=== PATIENT | female | born 1960 | race Caucasian/White ===

== ENCOUNTER → 2017-09-17 | Outpatient (CLI) | payer OTHER ==
[2017-09-17 12:17] LABS: BASO % 0.5 %; BASO ABS # 0.03 K/uL (0-0.2); EOS % 3.5 %; EOS ABS # 0.22 K/uL (0-0.5); HEMOGLOBIN 13.4 g/dL (12.0-16.0); IG# 0.01 K/uL (0.00-0.02); LYMPH % 27.3 %; LYMPH ABS # 1.73 K/uL (1.2-3.4); MEAN CELL VOLUME 92.6 fL (80-100); MEAN CORPUSCULAR HGB CONC 33.5 g/dl (32-36); MEAN PLATELET VOLUME 9.2 fL (7.4-10.4); MONO % 8.8 %; MONO ABS # 0.56 K/uL (0.11-0.59); NEUT % 59.7 %; NEUT ABS # 3.79 K/uL (1.4-6.5); PLATELET COUNT 396 K/uL (130-400); RED CELL DISTRIBUTION WIDTH CV 13.1 % (11.5-14.5); RED CELL DISTRIBUTION WIDTH SD 44.8 fL (36.4-46.3); WHITE BLOOD COUNT 6.34 K/uL (4.8-10.8)
[2017-09-17 13:36] LABS: ALBUMIN 3.8 gm/dl (3.4-5.0); ALT/SGPT 20 U/L (12-78); BLOOD UREA NITROGEN 6 mg/dl (7-18); CARBON DIOXIDE 27 mmol/L (21-32); CHOLESTEROL 236 mg/dl (0-200); CREATININE 0.68 mg/dl (0.60-1.20); GLUCOSE 90 mg/dl (70-99); POTASSIUM 3.9 mmol/L (3.5-5.1); SODIUM 139 mmol/L (136-145)
[2017-09-17 13:39] LABS: ALKALINE PHOSPHATASE 43 U/L (45-117); AST/SGOT 13 U/L (15-37); LDL CHOLESTEROL CALCULATED 147 mg/dl; TOTAL PROTEIN 7.2 gm/dl (6.4-8.2)
== END | disposition home or self-care (01) ==
LOC: C.LABMFLN 08:53
PROVIDERS: ATTEND Family Medicine
DX: E78.5 Hyperlipidemia, unspecified (principal); L30.9 Dermatitis, unspecified; R82.90 Unspecified abnormal findings in urine

== ENCOUNTER → 2017-10-12 | Outpatient (CLI) | payer OTHER ==
--- NOTE | 2017-10-15 15:18 | MAMMOGRAPHY REPORT ---
BILATERAL DIGITAL SCREENING MAMMOGRAM TOMOSYNTHESIS WITH CAD: 10/12/2017 CLINICAL HISTORY: Routine screening. Patient has no complaints. TECHNIQUE: Breast tomosynthesis in addition to standard 2D mammography was performed. Current study was also evaluated with a Computer Aided Detection (CAD) system. COMPARISON: Comparison is made to exams dated: 08/25/2013 mammogram, 03/29/2015 mammogram, and 012 mammogram. BREAST COMPOSITION: There are scattered areas of fibroglandular density in both breasts. FINDINGS: No suspicious masses, calcifications, or areas of architectural distortion are noted in ei ther breast. There has been no significant interval change compared to prior exams. There are stable post surgical changes from bilateral reduction mammoplasty. Scattered bilateral benign-appearing ca lcifications are not significantly changed. IMPRESSION: ACR BI-RADS CATEGORY 2: BENIGN There is no mammographic evidence of malignancy. A 1 year screening mammogram is recommended. The pa tient will receive written notification of the results. Approximately 10% of breast cancers are not detected with mammography. A negative mammographic report should not delay biopsy if a clinically suggestive mass is present. Priscilla Bhardwaj M.D. /:10/12/2017 14:24:28 Stencil Cutter Machine: Ailin PETERSON)([place]), [facility] letter sent: Normal 1/2 BI-RADS Code: ACR BI-RADS Category 2: Benign
== END | disposition home or self-care (01) ==
LOC: C.MAMM 13:54
PROVIDERS: ATTEND Family Medicine
DX: Z12.31 Encounter for screening mammogram for malignant neoplasm of breast (principal)

== ENCOUNTER 2020-10-11 12:32 | Observation (INO) ==
--- NOTE | 2020-10-11 14:26 | Emergency Department Note ---
Impression & Plan Chest pain ED Provider Note NAME: ELLIOTT RODRIGUEZ AGE: 60 SEX: F : 1960 ARRIVES VIA: Walk-In INFORMANT: Patient, ED PROVIDER(S): Edwin Clark MD Chief Complaint: Chest pain HPI: Patient does present with concern for chest pain that has been ongoing x2 weeks. Patient states that initially started approximate 2 Saturdays ago where she had a sharp twinge in the left chest. Subsequently the patient has had midsternal chest pain that is nonradiating but she states is exertional and is gotten progressively worse more constant. The patient states that it was especially worse today while moving a heavy load on a moving pallet. The patient denies any nausea or vomiting. The patient denies diaphoresis. Patient denies any lower extremity edema. The patient was recently started on lisinopril for hypertension on Sunday. The patient does have family history of her father having stents placed when he was in his 60s. Patient has taken occasional Tylenol which she states initially might have improved her discomfort but now it no longer helps. Patient denies any recent surgeries or procedures. Patient denies any recent prolonged car or plane travel. Patient denies any lower extremity edema. ROS: See HPI for pertinent positives and negatives. A total of 10 systems were reviewed and otherwise negative. Past medical history: See below Surgical history: See below Social history: See below Physical Exam: GENERAL: Wearing a mask and glasses. NAD, non-toxic. EYE EXAM: Normal conjunctiva. PERRL, no anisocoria and EOM's grossly intact w/o pain. NECK: Supple, no nuchal rigidity, no adenopathy, non-tender. No signs of meningismus. LUNGS: Clear to auscultation. Normal chest wall mechanics. HEART: NSR, no MRG. ABDOMEN: Abdomen soft, non-tender, normo-active bowel sounds, no masses, no rebound or guarding. BACK: No CVA TTP. SKIN: No rashes and no bruising. UPPER EXTREMITIES: Upper extremities are grossly normal. LOWER EXTREMITIES: Grossly normal, no edema. NEURO EXAM: A&O x3, cranial nerves II-XII grossly intact, normal speech, moves all 4 extremities on command w/o issue. Differential diagnoses: Cardiac ischemia, aortic dissection, pulmonary embolism, pneumothorax, pneumonia, pericarditis, myocarditis, esophageal rupture, GERD, cholecystitis, pancreatitis, musculoskeletal, as well as other pathologies. Course: Patient was seen and evaluated the bedside. Full history physical exam was performed. EKG: Indication: Chest pain Normal sinus rhythm, rate 89, normal UT, wide QRS, left bundle branch block pattern. No obvious carbose criteria. T wave inversion high lateral leads. No significant change from comparison EKG March 19, 2020. Imaging Studies: Radiology results as stated below per my review in the radiologist's interpretation: CT SCAN OF THE ABDOMEN AND PELVIS WITH IV CONTRAST CLINICAL HISTORY: Pancytopenia. Left-sided abdominal pain. COMPARISON STUDY: Abdominal CT dated 04/29/2020. TECHNIQUE: Following the IV administration of 119 cc of Optiray 320, CT scan of the abdomen and pelvis is performed from the lung bases to the proximal femora. Images are reviewed in the axial, sagittal, and coronal planes. IV contrast was administered without complication. A dose lowering technique was utilized adhering to the principles of ALARA. The examination is degraded by motion artifact, as well as by streak artifact from the arms which could not be related above the abdomen. CT DOSE: 672.04 mGy.cm FINDINGS: Lung bases: The heart is mildly enlarged and without pericardial effusion. There are coronary artery calcifications. The lung bases are clear noting bibasilar scarring/atelectasis. There is a tiny hiatal hernia. Liver: The contrast-enhanced liver is normal in size, contour, and attenuation. There is no intrahepatic biliary ductal dilatation. The hepatic veins and portal veins are patent. Gallbladder: Unremarkable. Spleen: Normal in size and attenuation, measuring 12.0 cm in length. Pancreas: Unremarkable. Adrenal glands: Unremarkable. Kidneys: The contrast enhanced kidneys demonstrate cortical atrophy and are without hydronephrosis. The kidneys enhance symmetrically. Abdominal vasculature: The abdominal aorta is normal in course and caliber noting moderate to advanced atherosclerotic calcification. Bowel: There is mild colonic fecal retention. No bowel obstruction is seen. There is moderate diverticulosis of the sigmoid colon without CT evidence of acute diverticulitis. The appendix is not visualized. Peritoneum: There is no intraperitoneal free air or abdominal ascites. Lymphadenopathy: There is retroperitoneal lymphadenopathy. A left periaortic node on image #161 measures 3.7 x 2.4 cm. There are mildly enlarged left inguinal nodes. The largest is seen on image #369 and measures 1.9 x 1.3 cm. Pelvic viscera: The bladder, uterus, and adnexa are normal as visualized. Skeletal structures: The skeletal structures are osteopenic. There is moderate to advanced lumbosacral spondylosis and mild scoliosis. No lytic or blastic lesions are seen. IMPRESSION: 1. Streak and motion compromised examination. 2. There are no acute infectious or inflammatory findings seen in the abdomen or pelvis. 3. Retroperitoneal and left inguinal lymphadenopathy is nonspecific, and has decreased from 04/29/2020. The appearance favors a lymphoproliferative disorder and correlation with the patient's oncological history will be required. 4. Additional findings as above. ACT 112: Negative or not required by law. Electronically signed by: Elmer Ford M.D. 10/11/2020 4:14 PM Dictated: 10/11/20 1602 Transcribed: 10/11/20 1608 Cardiac monitoring: An order was placed for continuous cardiac monitoring. The monitor shows a rate of 86 with sinus rhythm. MDM: Patient did present with concern for chest pain. The patient did have letter completed along with an EKG troponin chest x-ray. Chest ray unremarkable. Patient does have left bundle branch block no significant change from prior. The patient's blood work fairly unremarkable. The patient would be moderate risk and given the patient's history of left bundle with exertional chest pain believe the patient would benefit from inpatient treatment. The patient was ordered aspirin. Upon reassessment the patient's pain dissipated. I did speak the on-call hospitalist and the patient was admitted by Dr. Wiggins of the [facility] physician group medicine service. Past Med/Surg History Medical History (Updated 10/11/20 @ 18:02 by Berry Boyce MD) Anxiety Eczema Hyperlipidemia Recurrent cold sores Situational insomnia Thumb tendonitis Vitamin D deficiency Weight gain Surgical History S/P cholecystectomy S/P wrist surgery Family History Other Diabetes Hypertension Lung disease Social History Smoking Status: Never smoker Age Started Using Tobacco: 16; Age Quit Using Tobacco: 19; Second Hand Exposure: No; Hx Alcohol Use: No Hx Substance Use: No marital status: Single Current Living Situation: Alone current occupational status: employed current occupation: [employer] Feels Safe at Home: Yes Childhood Exposure to Second-Hand Smoke: No caffeine: Yes Dental Care, Regularly: Yes Physical Activity Frequency: Does not Exercise Seatbelt Use: always Allergies Allergies Allergy/AdvReac Type Severity Reaction Status Date / Time cefaclor [From Ceclor] AdvReac Verified 10/11/20 16:29 Home Meds Home Medications Medication Instructions Recorded Confirmed cetirizine 10 mg tablet 10 mg PO DAILY PRN tab 02/23/20 10/11/20 cholecalciferol (vitamin D3) 125 mcg PO DAILY 10/11/20 10/11/20 [Vitamin D3] Previous Rx's Medication Instructions Recorded omeprazole 40 mg capsule,delayed 40 mg PO DAILY PRN #90 cap 11/18/19 release fenofibrate nanocrystallized 145 145 mg PO DAILY #90 tab 06/28/20 mg tablet trazodone 50 mg tablet 100 mg PO HS PRN #180 tab 06/28/20 zolpidem 10 mg tablet 10 mg PO HS #30 tab 08/11/20 lisinopril 5 mg tablet 5 mg PO DAILY #30 tab 10/08/20 Results & Data (ED) Vital Signs Vital Signs - 24 hr 10/11/20 12:45 10/11/20 15:41 10/11/20 18:00 Temperature 36 C L Temperature Source Temporal Artery Scan Pulse Rate 90 Pulse Rate [Left Finger] 92 H 86 Pulse Rhythm [Left Finger] Regular Pulse Strength [Left Finger] Normal Respiratory Rate 20 16 16 Respiratory Effort / Characteristics Non-Labored Spontaneous Respiratory Depth Normal Normal Respiratory Pattern Regular Blood Pressure 159/89 H Blood Pressure [Left Arm] 204/107 H 154/85 H Blood Pressure Mean 112 Blood Pressure Mean [Left Arm] 139 108 Blood Pressure Position [Left Arm] Lying Pulse Oximetry 99 99 97 Oxygen Delivery Method Room Air Room Air Room Air Sepsis Recent Fever Within 48 Hours No Sepsis New/Unexplained Change in Mental Status N/A Sepsis Action Taken by Nursing No Action Required Home Medications Current Medication List: was personally reviewed by me Laboratory Data Attestation: I reviewed the patient's lab results. Result diagrams: 10/11/20 15:44 10/11/20 15:44 Lab Results 10/11/20 10/11/20 Range/Units 15:44 15:44 WBC 7.61 (4.8-10.8) K/uL RBC 4.63 (4.2-5.4) M/uL Hgb 14.0 (12.0-16.0) g/dL Hct 42.0 (37-47) % MCV 90.7 (80-100) fL MCH 30.2 (25-34) pg MCHC 33.3 (32-36) g/dL RDW Std Deviation 44.4 (36.4-46.3) fL RDW Coeff of Teri 13.4 (11.5-14.5) % Plt Count 436 H (130-400) K/uL MPV 9.1 (7.4-10.4) fL Immature Gran % (Auto) 0.1 % Neut % (Auto) 56.7 % Lymph % (Auto) 32.6 % [place] % (Auto) 8.9 % Eos % (Auto) 1.2 % Baso % (Auto) 0.5 % Neut # (Auto) 4.31 (1.4-6.5) K/uL Lymph # (Auto) 2.48 (1.2-3.4) K/uL [place] # (Auto) 0.68 H (0.11-0.59) K/uL Eos # (Auto) 0.09 (0-0.5) K/uL Baso # (Auto) 0.04 (0-0.2) K/uL Immature Gran # (Auto) 0.01 (0.00-0.02) K/uL Sodium 138 (136-145) mmol/L Potassium 4.0 (3.5-5.1) mmol/L Chloride 105 (98-107) mmol/L Carbon Dioxide 25 (21-32) mmol/L Anion Gap 7.0 (3-11) BUN 14 (7-18) mg/dl Creatinine 0.88 (0.6-1.2) mg/dl Est Cr Clr Drug Dosing 70.7 ml/min Est GFR ( Amer) 82.2 Est GFR (Non-Af Amer) 70.9 BUN/Creatinine Ratio 16.5 (10-20) Glucose 102 H (70-99) mg/dl Calcium 9.7 (8.5-10.1) mg/dl Total Bilirubin 0.5 (0.2-1) mg/dl AST 23 (15-37) U/L ALT 42 (12-78) U/L Alkaline Phosphatase 41 L (45-117) U/L Troponin I < 0.015 (0-0.045) ng/ml Total Protein 8.0 (6.4-8.2) gm/dl Albumin 4.3 (3.4-5.0) gm/dl Globulin 3.7 (2.5-4.0) gm/dl Albumin/Globulin Ratio 1.2 (0.9-2) Lipase 136 (73-393) U/L Specimen Hemolysis Discharge Plan Visit Data Chief Complaint: Chest Pain Stated Complaint: CHEST PAIN ED Provider: Edwin Clark Discharge Problem: Chest pain Forms Stand Alone Forms: [employer] [facility] [place] [employer] Prescriptions Prescriptions: No Action omeprazole 40 mg capsule,delayed release(DR/EC) 40 mg PO DAILY PRN (Reason: heartburn) Qty: 90 RF: 1 fenofibrate nanocrystallized 145 mg tablet 145 mg PO DAILY Qty: 90 RF: 3 trazodone 50 mg tablet 100 mg PO HS PRN (Reason: insomnia) Qty: 180 RF: 0 zolpidem [Ambien] 10 mg tablet 10 mg PO HS Qty: 30 RF: 0 lisinopril 5 mg tablet 5 mg PO DAILY Qty: 30 RF: 2 cetirizine 10 mg tablet 10 mg PO DAILY PRN (Reason: Allergy Symptoms) RF: 0 cholecalciferol (vitamin D3) [Vitamin D3] 125 mcg (5,000 unit) Tablet 125 mcg PO DAILY RF: 0
--- NOTE | 2020-10-11 14:58 | XRay Report ---
XR chest 1V portable CLINICAL HISTORY: Atypical chest pain COMPARISON STUDY: No previous studies for comparison. FINDINGS: The heart is borderline enlarged. There is no failure. There is no focal pulmonary consolid ation. There are no pleural effusions.[ IMPRESSION: No active disease in the chest. ACT 112: Negative or not required by law. Electronically signed by: Zoran Nuñez M.D. 10/11/2020 2:57 PM
[2020-10-11 15:57] LABS: Basophils # (auto) 0.04 K/uL (0-0.2); Basophils % (auto) 0.5 %; Eosinophils # (auto) 0.09 K/uL (0-0.5); Eosinophils % (auto) 1.2 %; Immature Granulocytes # (auto) 0.01 K/uL (0.00-0.02); Immature Granulocytes % (auto) 0.1 %; Lymphocytes # (auto) 2.48 K/uL (1.2-3.4); Lymphocytes % (auto) 32.6 %; Mean Corpuscular Hemoglobin 30.2 pg (25-34); Mean Corpuscular Hgb Conc 33.3 g/dL (32-36); Mean Corpuscular Volume 90.7 fL (80-100); Mean Platelet Volume 9.1 fL (7.4-10.4); Monocytes # (auto) 0.68 K/uL (0.11-0.59); Monocytes % (auto) 8.9 %; Neutrophils # (auto) 4.31 K/uL (1.4-6.5); Neutrophils % (auto) 56.7 %; Platelet Count 436 K/uL (130-400); RDW Coefficient of Variation 13.4 % (11.5-14.5); RDW Standard Deviation 44.4 fL (36.4-46.3); Red Blood Count 4.63 M/uL (4.2-5.4); White Blood Count 7.61 K/uL (4.8-10.8)
--- NOTE | 2020-10-11 16:07 | Electrocardiogram Report ---
Test Reason : Blood Pressure : / mmHG Vent. Rate : 089 BPM Atrial Rate : 089 BPM P-R Int : 172 ms QRS Dur : 126 ms QT Int : 408 ms P-R-T Axes : 056 -09 123 degrees QTc Int : 496 ms Normal sinus rhythm Possible Left atrial enlargement Left bundle branch block Abnormal ECG When compared with ECG of 19-MAR-2020 08:16, No significant change was found Confirmed by Delon Lund ([id number]) on 10/11/2020 4:07:10 PM Referred By: Ayaan Ochoa Confirmed By:Delon Lund
[2020-10-11 16:16] LABS: Alanine Aminotransferase 42 U/L (12-78); Albumin Level 4.3 gm/dl (3.4-5.0); Aspartate Aminotransferase 23 U/L (15-37); BUN Creatinine Ratio 16.5 (10-20); Blood Urea Nitrogen 14 mg/dl (7-18); Calcium 9.7 mg/dl (8.5-10.1); Carbon Dioxide 25 mmol/L (21-32); Chloride 105 mmol/L (98-107); Creatinine Clr Calc Pharmacy 70.7 ml/min; Est GFR (African American) 82.2; Est GFR (Non-African American) 70.9; Glucose 102 mg/dl (70-99); Lipase 136 U/L (73-393); Sodium 138 mmol/L (136-145)
[2020-10-11 16:20] LABS: Albumin Globulin Ratio 1.2 (0.9-2); Alkaline Phosphatase 41 U/L (45-117); Bilirubin,Total 0.5 mg/dl (0.2-1); Globulin 3.7 gm/dl (2.5-4.0); Troponin I < 0.015 ng/ml (0-0.045)
[2020-10-11] MEDS ORDERED: NITROGLYCERIN SL 0.4 MG/TAB TAB SL STA (16:41)
[2020-10-11] MEDS ORDERED: ASPIRIN CHEW 324 MG PO STA (16:41)
[2020-10-11] MEDS ORDERED: ACETAMINOPHEN 325 MG TAB PO STA (16:41)
--- NOTE | 2020-10-11 17:21 | History & Physical Report ---
Date of Service October 11, 2020 Assessment & Plan (1) Chest pain: Louise is a 60-year-old female with a past medical history of chronic left bundle branch block preceding ischemic disease, hyperlipidemia, insomnia, GERD, and hypertension who presents for evaluation of 1 month of chest pain wo rsened the last 2 weeks. Chest Pain suspect stable angina - Central without radiation, exertional in nature - EKG with chronic LBBB, no acute ST/T wave changes - Pt had cath & nuclear stress in the 90's due to the LBBB, both were normal at the time. no testing since. Father with stends in 60s, non-smoker. Pt is a non- smoker. - HEART score 4-5 pts (moderate), including chronic LBBB. - Initial trop negative - Pt received full dose asa, nitro on admission, pain currently 0/10 - Admit on observation - Trend troponin x3 total - Nitro 0.4mg SL PRN - TTE pending - Lipids pending - Admission glucose elevated at 102, A1C pending - Metoprolol T 25mg BID as below (2) Hyperlipidemia: - Continue fenofibrate 145mg daily - Recommend patient begin Atorvastatin 40mg. Pt has declined this in the past, her father also refused statins and had a friend who went into fulminant liver failure after starting a statin. Discussed the relative risk of severe reactions vs benefits for CAD/Stroke reduction. 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 (6) DVT prophylaxis: - Heparin: Weight based heparin q8H - Diet: Regular - CODE STATUS: Full CODE - Dispo: PCU History of Present Illness Primary Care Provider: Ayaan Ochoa DO Louise reports for the last three months she has had a daily headache. on she checked her blood pressure and it was elevated to 164/80s. The next day she still felt poorly and emailed her physician who prescribed 5mg of lisinopril. She has also had intermittent chest pain for two weeks. Normally she feels uneasy, tight chest pain in the middle of her chest. On Sunday she was sitting down and she felt like her heart had 'a quick piercing jolt' which scared her. 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 She notes she has had an EKG 'abnormality, left bundle branch block for as far back as way back when.' She first began having chest pain rarely in the preceding few months/years but 'wrote it off as indigestion.' Two weeks ago she noticed more frequent chest pain which did not improve with indigestion medications (omeprazole which she uses PRN). Two weeks ago she noticed the pain just started to 'hang on for a little longer' and started to come up with exercise/exertion. She has not had s hortness of breath with the episodes, but does report 'when I have it I need to take deeper breaths.' She notices that exertion has been bringing out the pain in the last two weeks. She denies diaphoresis, but feels warm with cold hands during the episodes. 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 She has had some chest pain without extertion since ~1 mo ago, but feels this is more rare (every few days), and are sudden sharp pains that resolve quickly. Pain in her chest is substernal, in the center of her chest. 0/10 now, but 12/10 at its worst, normally improves with rest after ~10-15 minutes. Does not travel, no shoulder or jaw pain. She has chronic daily headaches which last part of to the whole day for 3-4 months. No vision change. She reports she had COVID in june and still has not reclaimed her sense of smell. Some taste has returned. No hx of bloot clots, DVT, or strokes. Reports she is less active since bilateral knee surgery and weight gain. FHx: Mother T2DM, DVT post-surgically. Father had at least 2 stents in his 60s and had T2DM with no tobacco use. Medical Hx: HLD on fenofrate. Never wanted to be on a statin because her father and best friend had liver reactions. SHX: Bilateral knee surgery. Social: Lives with sister and . Azul Rodriguez is hister sister and would be surrogate decision making. Tobacco: None EtoH: None Recreational: None, no medical marijuana Allergies: HIVES to to ceclor CODE STATUS: Full Code Allergies Allergy/AdvReac Type Severity Reaction Status Date / Time cefaclor [From Ceclor] AdvReac Verified 10/11/20 16:29 Home Medications Medication Instructions Recorded Confirmed Type omeprazole 40 mg capsule,delayed 40 mg PO DAILY PRN #90 cap 11/18/19 10/11/20 Rx release cetirizine 10 mg tablet 10 mg PO DAILY PRN tab 02/23/20 10/11/20 History fenofibrate nanocrystallized 145 145 mg PO DAILY #90 tab 06/28/20 10/11/20 Rx mg tablet trazodone 50 mg tablet 100 mg PO HS PRN #180 tab 06/28/20 10/11/20 Rx zolpidem 10 mg tablet 10 mg PO HS #30 tab 08/11/20 10/11/20 Rx lisinopril 5 mg tablet 5 mg PO DAILY #30 tab 10/08/20 10/11/20 Rx cholecalciferol (vitamin D3) 125 mcg PO DAILY 10/11/20 10/11/20 History [Vitamin D3] Past Med/Surg History Medical History (Updated 10/11/20 @ 22:25 by Marline Wiggins MD) Anxiety Eczema Hyperlipidemia Hypertension Insomnia Recurrent cold sores Situational insomnia Thrombocytosis Thumb tendonitis Vitamin D deficiency Weight gain Surgical History S/P cholecystectomy S/P wrist surgery Family History (Updated 10/11/20 @ 22:26 by Marline Wiggins MD) Father Coronary heart disease Diabetes Mother Deep vein thrombosis Other Hypertension Lung disease Social History Smoking Status: Never smoker Age Started Using Tobacco: 16; Age Quit Using Tobacco: 19; Second Hand Exposure: No; Hx Alcohol Use: No Hx Substance Use: No Preferred Language: Occitan Communication Ability: Effective 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 Feels Safe at Home: Yes Safety Concerns: Feels Safe At This Time Childhood Exposure to Second-Hand Smoke: No caffeine: Yes Dental Care, Regularly: Yes Physical Activity Frequency: Does not Exercise Seatbelt Use: always Review of Systems Review of Systems: Constitutional: Denies fever, chills, malaise. Endorses slow weight gain since being more sedentary after bilateral knee surgery. Eyes: Denies double vision, vision change, eye pain ENT: Congestion, ear pain, sore throat Cardiovascular: See HPI. Denies extremity swelling Respiratory: See HPI, Gastrointestinal: Denies abdominal pain, nausea, vomiting, constipation, diarrhea. Endorses intermittent indigestion. Genitourinary: Denies Urinary symptoms Musculoskeletal: Denies acute weakness, muscle aches/pain, joint aches/pain Integumentary:Denies rash, lesions, bruising Neurological: Endorses headache as noted in HPI. Denies numbness, tingling, focal weakness Physical Exam Physical Exam: General: A&Ox3. NAD. Cooperative. HEENT: Atraumatic, normocephalic. Pulm: CTAB A&P. -wheezes, -rales, -rhonchi. Symmetrical chest rise. No increase work of breathing. No respiratory distress. Cardiac: RRR, -mrg. Radial pulses intact and symmetrical. No JVD. Abdominal: Nontender, nondistended, soft. BS present. 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 Bilateral flexor planter response, no Collazo's, no clonus SENSORY: Normal to touch in upper and lower extremities without deficit or asymmetry Results & Data Results & Data ([facility]) Vital Signs (Past 12 Hours) Vital Signs Temp Pulse Pulse Resp BP BP Pulse Ox 10/11/20 15:41 92 H 16 204/107 H 99 10/11/20 12:45 36 C L 90 20 159/89 H 99 Laboratory Results 10/11/20 10/11/20 10/11/20 Range/Units 20:31 20:31 20:31 WBC (4.8-10.8) K/uL RBC (4.2-5.4) M/uL Hgb (12.0-16.0) g/dL Hct (37-47) % MCV (80-100) fL MCH (25-34) pg MCHC (32-36) g/dL RDW Std Deviation (36.4-46.3) fL RDW Coeff of Teri (11.5-14.5) % Plt Count (130-400) K/uL MPV (7.4-10.4) fL Immature Gran % (Auto) % Neut % (Auto) % Lymph % (Auto) % Crockett % (Auto) % Eos % (Auto) % Baso % (Auto) % Neut # (Auto) (1.4-6.5) K/uL Lymph # (Auto) (1.2-3.4) K/uL Crockett # (Auto) (0.11-0.59) K/uL Eos # (Auto) (0-0.5) K/uL Baso # (Auto) (0-0.2) K/uL Immature Gran # (Auto) (0.00-0.02) K/uL Sodium (136-145) mmol/L Potassium (3.5-5.1) mmol/L Chloride (98-107) mmol/L Carbon Dioxide (21-32) mmol/L Anion Gap (3-11) BUN (7-18) mg/dl Creatinine (0.6-1.2) mg/dl Est Cr Clr Drug Dosing ml/min Est GFR ( Amer) Est GFR (Non-Af Amer) BUN/Creatinine Ratio (10-20) Glucose (70-99) mg/dl Estimat Average Glucose Pending Hemoglobin A1c Pending Calcium (8.5-10.1) mg/dl Total Bilirubin (0.2-1) mg/dl AST (15-37) U/L ALT (12-78) U/L Alkaline Phosphatase (45-117) U/L Troponin I < 0.015 (0-0.045) ng/ml Total Protein (6.4-8.2) gm/dl Albumin (3.4-5.0) gm/dl Globulin (2.5-4.0) gm/dl Albumin/Globulin Ratio (0.9-2) Triglycerides 122 (0-150) mg/dl Cholesterol 236 H (0-200) mg/dl LDL Cholesterol, Calc 142 mg/dl VLDL Cholesterol, Calc 24 mg/dl HDL Cholesterol 70 mg/dl Cholesterol/HDL Ratio 3 Lipase (73-393) U/L Specimen Hemolysis COVID-19 Eval Order SARS-CoV-2, RNA, NAAT (NEGATIVE) 10/11/20 10/11/20 10/11/20 Range/Units 18:50 18:50 15:44 WBC (4.8-10.8) K/uL RBC (4.2-5.4) M/uL Hgb (12.0-16.0) g/dL Hct (37-47) % MCV (80-100) fL MCH (25-34) pg MCHC (32-36) g/dL RDW Std Deviation (36.4-46.3) fL RDW Coeff of Teri (11.5-14.5) % Plt Count (130-400) K/uL MPV (7.4-10.4) fL Immature Gran % (Auto) % Neut % (Auto) % Lymph % (Auto) % Crockett % (Auto) % Eos % (Auto) % Baso % (Auto) % Neut # (Auto) (1.4-6.5) K/uL Lymph # (Auto) (1.2-3.4) K/uL Crockett # (Auto) (0.11-0.59) K/uL Eos # (Auto) (0-0.5) K/uL Baso # (Auto) (0-0.2) K/uL Immature Gran # (Auto) (0.00-0.02) K/uL Sodium 138 (136-145) mmol/L Potassium 4.0 (3.5-5.1) mmol/L Chloride 105 (98-107) mmol/L Carbon Dioxide 25 (21-32) mmol/L Anion Gap 7.0 (3-11) BUN 14 (7-18) mg/dl Creatinine 0.88 (0.6-1.2) mg/dl Est Cr Clr Drug Dosing 70.7 ml/min Est GFR ( Amer) 82.2 Est GFR (Non-Af Amer) 70.9 BUN/Creatinine Ratio 16.5 (10-20) Glucose 102 H (70-99) mg/dl Estimat Average Glucose Hemoglobin A1c Calcium 9.7 (8.5-10.1) mg/dl Total Bilirubin 0.5 (0.2-1) mg/dl AST 23 (15-37) U/L ALT 42 (12-78) U/L Alkaline Phosphatase 41 L (45-117) U/L Troponin I < 0.015 (0-0.045) ng/ml Total Protein 8.0 (6.4-8.2) gm/dl Albumin 4.3 (3.4-5.0) gm/dl Globulin 3.7 (2.5-4.0) gm/dl Albumin/Globulin Ratio 1.2 (0.9-2) Triglycerides (0-150) mg/dl Cholesterol (0-200) mg/dl LDL Cholesterol, Calc mg/dl VLDL Cholesterol, Calc mg/dl HDL Cholesterol mg/dl Cholesterol/HDL Ratio Lipase 136 (73-393) U/L Specimen Hemolysis COVID-19 Eval Order Covid19 IDNow atMAZC SARS-CoV-2, RNA, NAAT NEGATIVE (NEGATIVE) 10/11/20 Range/Units 15:44 WBC 7.61 (4.8-10.8) K/uL RBC 4.63 (4.2-5.4) M/uL Hgb 14.0 (12.0-16.0) g/dL Hct 42.0 (37-47) % MCV 90.7 (80-100) fL MCH 30.2 (25-34) pg MCHC 33.3 (32-36) g/dL RDW Std Deviation 44.4 (36.4-46.3) fL RDW Coeff of Trei 13.4 (11.5-14.5) % Plt Count 436 H (130-400) K/uL MPV 9.1 (7.4-10.4) fL Immature Gran % (Auto) 0.1 % Neut % (Auto) 56.7 % Lymph % (Auto) 32.6 % Crockett % (Auto) 8.9 % Eos % (Auto) 1.2 % Baso % (Auto) 0.5 % Neut # (Auto) 4.31 (1.4-6.5) K/uL Lymph # (Auto) 2.48 (1.2-3.4) K/uL Crockett # (Auto) 0.68 H (0.11-0.59) K/uL Eos # (Auto) 0.09 (0-0.5) K/uL Baso # (Auto) 0.04 (0-0.2) K/uL Immature Gran # (Auto) 0.01 (0.00-0.02) K/uL Sodium (136-145) mmol/L Potassium (3.5-5.1) mmol/L Chloride (98-107) mmol/L Carbon Dioxide (21-32) mmol/L Anion Gap (3-11) BUN (7-18) mg/dl Creatinine (0.6-1.2) mg/dl Est Cr Clr Drug Dosing ml/min Est GFR ( Amer) Est GFR (Non-Af Amer) BUN/Creatinine Ratio (10-20) Glucose (70-99) mg/dl Estimat Average Glucose Hemoglobin A1c Calcium (8.5-10.1) mg/dl Total Bilirubin (0.2-1) mg/dl AST (15-37) U/L ALT (12-78) U/L Alkaline Phosphatase (45-117) U/L Troponin I (0-0.045) ng/ml Total Protein (6.4-8.2) gm/dl Albumin (3.4-5.0) gm/dl Globulin (2.5-4.0) gm/dl Albumin/Globulin Ratio (0.9-2) Triglycerides (0-150) mg/dl Cholesterol (0-200) mg/dl LDL Cholesterol, Calc mg/dl VLDL Cholesterol, Calc mg/dl HDL Cholesterol mg/dl Cholesterol/HDL Ratio Lipase (73-393) U/L Specimen Hemolysis COVID-19 Eval Order SARS-CoV-2, RNA, NAAT (NEGATIVE) Diagnostic Findings XR chest 1V portable CLINICAL HISTORY: Atypical chest pain COMPARISON STUDY: No previous studies for comparison. FINDINGS: The heart is borderline enlarged. There is no failure. There is no focal pulmonary consolidation. There are no pleural effusions.[ IMPRESSION: No active disease in the chest. Supervising Physician Co-Signing Physician Notes I personally examined the patient and verified all nguyen points of history and exam, discussed case, and agree with decision making with Dr. Boyce with the following additions/exceptions: This patient is a 60-year-old female with a history of hyperlipidemia, obesity, and hypertension, who presents to the ER with substernal chest pain that is nonradiating, that is brought on with exertion and relieved with rest, not associated with shortness of breath or nausea. Chest pain has been going on for 1 to 2 weeks. It was not relieved with Tums or her usual Prilosec. She is al so noted headaches ongoing for months but worse in the last couple of weeks and started checking her blood pressure and noticing that the headaches come on when her blood pressures greater than 150 systolic. Prior to 2 weeks ago, she reports she could easily walk a mile or go up and down a flight of stairs without any chest pains. But now, with even minimal exertion, she has onset of chest pain. When I saw her, she had just sat herself up in bed and reported the chest pain had returned. She was given nitroglycerin and had improvement. Her blood pressures remained quite elevated in the ER. History and ROS reviewed as above Vitals reviewed Gen: AAOx3, NAD HEENT: Anicteric sclerae, EOMI CV: RRR no mgr nl S1S2 Pulm: CTAB no wcr Abd: +BS soft NT ND no masses or hernias Ext: No edema, 2+ DP pulses Skin: No rashes, warm/dry Neuro: Full strength throughout Laboratory values reviewed ECG on 10/11/2020 at 1251 with normal sinus rhythm, rate 89, possible left atrial enlargement, LBBB, unchanged from previous Chest x-ray reviewed 60-year-old female here with unstable angina in the setting of worsening uncontrolled hypertension, untreated hyperlipidemia, with positive family history of CAD. Patient with known chronic LBBB but also had Covid in the last several months and still has not fully recovered from this. Initial troponin negative, ECG without obvious ischemic changes. -Serial troponin, echocardiogram -Consult cardiology for further input as to whether she should undergo cardiac catheterization versus nuclear medicine stress test -Start aspirin, metoprolol for improved blood pressure control, nitroglycerin as needed, check lipid panel and strongly consider adding a statin Continue recently started lisinopril Headaches are likely due to uncontrolled hypertension and seem to improve when blood pressure is improved. Tylenol as needed. Resident Activity Tracking Resident Involvement: Resident Care Provided Care Provided: Adult Hospital Medicine
[2020-10-11] MEDS ORDERED: ACETAMINOPHEN 325 MG TAB ONE (18:44)
[2020-10-11] MEDS ORDERED: ASPIRIN CHEW 324 MG ONE (18:44)
[2020-10-11] MEDS ORDERED: NITROGLYCERIN SL 0.4 MG/TAB TAB ONE (19:27)
[2020-10-11] MEDS ORDERED: traZODone HCL 100 MG TAB PO PRN (20:17)
[2020-10-11] MEDS ORDERED: POLYETHYLENE (MIRALAX) 17 GM PACK PO PRN (20:17)
[2020-10-11] MEDS ORDERED: NITROGLYCERIN SL 0.4 MG/TAB TAB SL PRN (20:17)
[2020-10-11 21:07] LABS: Chol HDL Ratio 3; Cholesterol 236 mg/dl (0-200); HDL Cholesterol 70 mg/dl; LDL Cholesterol Calculated 142 mg/dl; Triglycerides 122 mg/dl (0-150); VLDL Cholesterol 24 mg/dl
[2020-10-11] MEDS: METOPROLOL TARTRATE 25 MG TAB PO SCH (21:27)
[2020-10-11] MEDS: ZOLPIDEM TARTRATE 10 MG TAB PO PRN (21:27)
[2020-10-11] MEDS: HEPARIN SOD 5,000 UNIT/0.5 ML VIAL SQ SCH (21:27)
--- NOTE | 2020-10-11 22:35 | Billing Data ---
Date of Service October 11, 2020 Coding Level of Care Code 94300 OBS Care - Level 3
[2020-10-12 02:33] LABS: Basophils # (auto) 0.03 K/uL (0-0.2); Basophils % (auto) 0.4 %; Eosinophils # (auto) 0.15 K/uL (0-0.5); Eosinophils % (auto) 2.1 %; Hematocrit (blood only) 38.9 % (37-47); Hemoglobin 13.3 g/dL (12.0-16.0); Immature Granulocytes # (auto) 0.01 K/uL (0.00-0.02); Immature Granulocytes % (auto) 0.1 %; Lymphocytes # (auto) 3.02 K/uL (1.2-3.4); Lymphocytes % (auto) 41.8 %; Mean Corpuscular Hemoglobin 30.8 pg (25-34); Mean Corpuscular Hgb Conc 34.2 g/dL (32-36); Monocytes % (auto) 9.7 %; Neutrophils # (auto) 3.31 K/uL (1.4-6.5); Neutrophils % (auto) 45.9 %; Platelet Count 414 K/uL (130-400); RDW Coefficient of Variation 13.3 % (11.5-14.5); RDW Standard Deviation 44.5 fL (36.4-46.3); Red Blood Count 4.32 M/uL (4.2-5.4); White Blood Count 7.22 K/uL (4.8-10.8)
[2020-10-12 03:51] LABS: BUN Creatinine Ratio 18.7 (10-20); Creatinine Clr Calc Pharmacy 78.1 ml/min; Est GFR (African American) 92.2; Est GFR (Non-African American) 79.6; Potassium 3.7 mmol/L (3.5-5.1)
[2020-10-12] MEDS: HEPARIN SOD 5,000 UNIT/0.5 ML VIAL SQ SCH ×3 (05:53→21:10)
[2020-10-12 06:15] LABS: Estimated Average Glucose 126 mg/dl
--- NOTE | 2020-10-12 08:34 | Hospitalist Progress Note ---
Date of Service October 12, 2020 Assessment & Plan (1) Chest pain: Patient has a left bundle branch block which will make determining ischemia on echocardiogram difficult. Cardiology did see the patient and although they are leaving to noncardiac origin of this discomfort is scheduling her for Lexiscan on 10/13/2020 (2) Hyperlipidemia: Patient has a fear of statins due to some family members who had a problem after taking them. She is on a fibrate and will continue this with continue education (3) Hypertension: Continues on lisinopril and metoprolol (4) Insomnia: Typically uses trazodone for sleep as needed (5) [id number] condition: Covid infection was in the distant past doubt this is having any current issues for the patient (6) DVT prophylaxis: Heparin is used for DVT prevention at this time Admission and Anticipated Discharge Date Admission Date: October 11, 2020 Subjective Patient denies having any further chest discomfort. Patient recalls speaking to cardiology and is scheduled for a Lexiscan tomorrow. Patient is unable to walk on the treadmill due to arthritic knee conditions. Is reinforced to the patient to contact the nurse if she has recurrence of her chest discomfort Review of Systems Review of Systems: Currently no distress and fatigue no headache, blurry or double vision no speech or swallowing issues no chest pain, pressure or palpitations no shortness of breath, cough or wheezes no abdominal pain, nausea or vomiting, diarrhea or constipation no dysuria, hematuria or frequency no focal joint pain or swelling no back pain, CVA tenderness or radicular pain no bruising, bleeding or rashes no focal signs of weakness or numbness or altered sensation no complaints of anxiety or depression.. Physical Exam Physical Exam: The patient appeared well nourished and normally developed. Vital signs as documented. Head exam is normocephalic atraumatic no scleral icterus Neck is without JVD, thyromegaly, or carotid bruits. Lungs are clear to auscultation, no focal loss of breath sounds Cardiac exam, Rhythm is regular.. No murmurs, rubs or gallops. Abdominal exam reveals normal bowel sounds, soft non tender, no masses Extremities are nonedematous and both pedal pulses are present Neurologic exam is alert and oriented, no focal loss of strength or sensation Skin is without bruises or rashes Psychologically is without concerns for anxiety or depression Results & Data Results & Data ([facility]) Vital Signs (Past 12 Hours) Vital Signs Temp Pulse Pulse Resp BP Pulse Ox 10/12/20 07:28 98.2 F 68 18 137/74 96 10/12/20 04:10 97.9 F 65 16 129/65 95 10/12/20 00:18 61 10/11/20 23:54 98.1 F 67 18 125/74 98 PG Care Time/CCT Total # of Minutes Spent Total Time Spent with Patient: Total time spent is greater than 50% in coordination of care (as documented) at patient's floor/unit and/or counseling patient: Coding Level of Care Code 12944 Subseq Obs Care Lvl 2 Diagnoses Chest pain R07.2 Chest pain type: precordial pain Hyperlipidemia E78.5 Hyperlipidemia type: unspecified Hypertension I10 Hypertension type: essential hypertension Insomnia G47.00 [id number] condition B94.8 DVT prophylaxis Z29.9 (1) Hyperlipidemia Hyperlipidemia type: unspecified Qualified Code(s): E78.5 - Hyperlipidemia, unspecified (2) Chest pain Chest pain type: precordial pain Qualified Code(s): R07.2 - Precordial pain (3) Hypertension Hypertension type: essential hypertension Qualified Code(s): I10 - Essential (primary) hypertension
[2020-10-12] MEDS: FENOFIBRATE NANOCRYSTALLIZED 145 MG TABLET PO SCH (08:38)
[2020-10-12] MEDS: METOPROLOL TARTRATE 25 MG TAB PO SCH ×2 (08:38→21:08)
[2020-10-12] MEDS: lisinopril 5 MG TAB PO SCH (08:38)
[2020-10-12] MEDS: ASPIRIN 81 MG ECTAB PO SCH (08:39)
--- NOTE | 2020-10-12 08:40 | XCELERA ---
[id number]
--- NOTE | 2020-10-12 09:14 | Cardiology Consultation ---
Date of Consultation October 12, 2020 Assessment & Plan (1) Chest pain: She has chest discomfort which is somewhat atypical and that it sometimes occurs with eating, it is not always exertional and she does have a history of GERD. It does however have some characteristics of ischemic pain including a more recent exertional character, however even with several hours of chest discomfort her enzymes are negative. Her electrocardiogram is not helpful. Her echocardiogram does not show wall motion abnormalities. I suspect the discomfort is not cardiac, however I think we need to exclude a cardiac (ischemic) component. I think we should do a stress test not a catheterization, she cannot walk on a treadmill due to prior knee surgery and with a left bundle branch block a dobutamine echo is probably not very accurate. I am scheduling her for a Lexiscan Cardiolite study which can be done tomorrow morning. (2) LBBB (left bundle branch block): She has what sounds like a longstanding left bundle branch block which evidently is not ischemic in origin. It interferes with her testing but since her left ventricular function is normal there is nothing else that I would do for treatment or evaluation. (3) Hypertension: She has a recent history of hypertension for which she was started on lisinopril, when she presented she had quite significant hypertension which is now normalized. I suspect it was stress related on presentation. I would consider beta-blockade, especially if we detect coronary artery disease, but I would wait until after the stress test to make medication changes. (4) Hyperlipidemia: She has hyperlipidemia and is on fenofibrate, if she has coronary disease I hope she will reconsider statin therapy but at the moment I do not think we need to change. History of Present Illness Reason for Consultation: Chest discomfort, left bundle branch block Attending Physician: Mike Boyd MD History of Present Illness This is a 60-year-old woman who has a history of hyperlipidemia (she is on fenofibrate and has refused statin therapy), GERD and known left bundle branch block. That may have been diagnosed in 2002 when she had an electrocardiogram performed for anxiety and it is reported as being abnormal, she has undergone cardiac catheterization at [facility] which is reportedly normal although I do not have those results to review. She believes that was done around 1994 and the catheterization probably followed some type of stress test. She presented to the emergency room on October 11, 2020 with about 2 weeks of chest discomfort. She describes the chest discomfort to me as a dull discomfort in lower sternal area, no radiation, initially lasting around 15 minutes and relieved by relaxation several weeks ago but becoming more prolonged and lasting up to several hours on the day of presentation. She also notices this discomfort when she eats, however when she came into the emergency room yesterday she was loading a pallet ghislaine when she got the discomfort. She was not short of breath. She has had bilateral knee surgery and cannot be too active. When she first began to have the chest discomfort several weeks ago she noticed that her blood pressure was elevated and she was started on lisinopril. Prior to that I do not believe she was on an antihypertensive. Evaluation emergency room included an electrocardiogram which shows her known left bundle branch block, troponin measurements x3 over 11 hours are less than 0.015. A cholesterol determination done this visit in the emergency room shows a total cholesterol of 236, and an HDL of 70. An echocardiogram done this morning shows good left ventricular function and very little dyssynchrony related to the left bundle branch block. Allergies Allergy/AdvReac Type Severity Reaction Status Date / Time cefaclor [From [facility]] AdvReac Verified 10/11/20 16:29 Home Medications Medication Instructions Recorded Confirmed Type omeprazole 40 mg capsule,delayed 40 mg PO DAILY PRN #90 cap 11/18/19 10/11/20 Rx release cetirizine 10 mg tablet 10 mg PO DAILY PRN tab 02/23/20 10/11/20 History fenofibrate nanocrystallized 145 145 mg PO DAILY #90 tab 06/28/20 10/11/20 Rx mg tablet trazodone 50 mg tablet 100 mg PO HS PRN #180 tab 06/28/20 10/11/20 Rx zolpidem 10 mg tablet 10 mg PO HS #30 tab 08/11/20 10/11/20 Rx lisinopril 5 mg tablet 5 mg PO DAILY #30 tab 10/08/20 10/11/20 Rx cholecalciferol (vitamin D3) 125 mcg PO DAILY 10/11/20 10/11/20 History [Vitamin D3] Patient History Medical History Anxiety Eczema Hyperlipidemia Hypertension Insomnia Recurrent cold sores Situational insomnia Thrombocytosis Thumb tendonitis Vitamin D deficiency Weight gain Surgical History S/P cholecystectomy S/P wrist surgery Family History Father Coronary heart disease Diabetes Mother Deep vein thrombosis Other Hypertension Lung disease Social History Smoking Status: Never smoker Age Started Using Tobacco: 16; Age Quit Using Tobacco: 19; Second Hand Exposure: No; Hx Alcohol Use: No Hx Substance Use: No Preferred Language: Sami Communication Ability: Effective Cruise Counselor Required: No Beliefs That Will Affect Care: None marital status: Single Current Living Situation: Alone current occupational status: employed current occupation: [employer] Feels Safe at Home: Yes Safety Concerns: Feels Safe At This Time Childhood Exposure to Second-Hand Smoke: No caffeine: Yes Dental Care, Regularly: Yes Physical Activity Frequency: Does not Exercise Seatbelt Use: always Review of Systems Review of Systems: All systems reviewed & are unremarkable except as noted in HPI & below Physical Exam Physical Exam: Constitutional: Alert, cooperative and in no distress. HEENT: Unremarkable Neck: No jugular venous distention, carotid pulses are normal and equal bilaterally without bruits. Pulmonary: Clear to auscultation bilaterally. Cardiac: Regular rhythm with no murmur, gallop or rub. Abdomen: Soft, nontender with normal bowel sounds. Extremities: No edema. Distal pulses intact. Neurologic: No focal findings. Gait was not tested. Skin: No rash, ecchymoses or petechiae. Results & Data ([facility]) Vital Signs (Past 12 Hours) Vital Signs Temp Pulse Pulse Resp BP Pulse Ox 10/12/20 07:28 36.8 C 68 18 137/74 96 10/12/20 04:10 36.6 C 65 16 129/65 95 10/12/20 00:18 61 10/11/20 23:54 36.7 C 67 18 125/74 98 Laboratory Results Cardiac Enzymes 10/11/20 10/11/20 10/12/20 Range/Units 15:44 20:31 02:20 AST 23 (15-37) U/L Troponin I < 0.015 < 0.015 < 0.015 (0-0.045) ng/ml Lipids 10/11/20 Range/Units 20:31 Triglycerides 122 (0-150) mg/dl Cholesterol 236 H (0-200) mg/dl HDL Cholesterol 70 mg/dl Cholesterol/HDL Ratio 3 CBC 10/11/20 10/12/20 Range/Units 15:44 02:20 WBC 7.61 7.22 (4.8-10.8) K/uL RBC 4.63 4.32 (4.2-5.4) M/uL Hgb 14.0 13.3 (12.0-16.0) g/dL Hct 42.0 38.9 (37-47) % Plt Count 436 H 414 H (130-400) K/uL Neut # (Auto) 4.31 3.31 (1.4-6.5) K/uL Lymph # (Auto) 2.48 3.02 (1.2-3.4) K/uL Guthrie # (Auto) 0.68 H 0.70 H (0.11-0.59) K/uL Eos # (Auto) 0.09 0.15 (0-0.5) K/uL Baso # (Auto) 0.04 0.03 (0-0.2) K/uL Comprehensive Metabolic Panel 10/11/20 10/12/20 Range/Units 15:44 02:20 Sodium 138 139 (136-145) mmol/L Potassium 4.0 3.7 (3.5-5.1) mmol/L Chloride 105 109 H (98-107) mmol/L Carbon Dioxide 25 25 (21-32) mmol/L BUN 14 15 (7-18) mg/dl Creatinine 0.88 0.80 (0.6-1.2) mg/dl Glucose 102 H 98 (70-99) mg/dl Calcium 9.7 9.0 (8.5-10.1) mg/dl AST 23 (15-37) U/L ALT 42 (12-78) U/L Alkaline Phosphatase 41 L (45-117) U/L Total Protein 8.0 (6.4-8.2) gm/dl Albumin 4.3 (3.4-5.0) gm/dl Intake and Output 10/11/20 10/12/20 10/12/20 22:59 06:59 14:59 Intake Total 120 / 620 500 / 620 Output Total 200 / 200 300 / 300 Balance 120 / 420 300 / 420 -300 / -300 Intake: Oral 120 / 620 500 / 620 Output: Urine 200 / 200 300 / 300 Other: # Unmeasured Voids 1 Weight 92.4 kg 91.989 kg Weight Measurement Method [facility] Diagnostic Findings I reviewed the electrocardiogram myself and it shows left bundle branch block with no acute changes although that is not very specific. Telemetry: Sinus rhythm, no significant arrhythmia. PG Care Time/CCT Total # of Minutes Spent Total Time Spent with Patient: Total time spent is greater than 50% in coordination of care (as documented) at patient's floor/unit and/or counseling patient: Coding Level of Care Code 80642 Office/OBS Consult Lvl 4 Diagnoses Chest pain R07.2 Chest pain type: precordial pain LBBB (left bundle branch block) I44.7 Hypertension I10 Hypertension type: essential hypertension Hyperlipidemia E78.5 Hyperlipidemia type: unspecified (1) Chest pain Chest pain type: precordial pain Qualified Code(s): R07.2 - Precordial pain (2) Hypertension Hypertension type: essential hypertension Qualified Code(s): I10 - Essential (primary) hypertension (3) Hyperlipidemia Hyperlipidemia type: unspecified Qualified Code(s): E78.5 - Hyperlipidemia, unspecified
[2020-10-12] MEDS: ACETAMINOPHEN 325 MG TAB PO PRN ×2 (15:02→21:19)
[2020-10-12] MEDS: ZOLPIDEM TARTRATE 10 MG TAB PO PRN (21:19)
[2020-10-13] MEDS: HEPARIN SOD 5,000 UNIT/0.5 ML VIAL SQ SCH (06:18)
[2020-10-13] MEDS ORDERED: REGADENOSON 0.4 MG/5 ML SYR IV ONE (08:42)
[2020-10-13] MEDS: ASPIRIN 81 MG ECTAB PO SCH (10:34)
[2020-10-13] MEDS: FENOFIBRATE NANOCRYSTALLIZED 145 MG TABLET PO SCH (10:34)
[2020-10-13] MEDS: lisinopril 5 MG TAB PO SCH (10:34)
[2020-10-13] MEDS: METOPROLOL TARTRATE 25 MG TAB PO SCH (10:34)
--- NOTE | 2020-10-13 13:39 | Myocardial Perfusion Study ---
Date of Service October 13, 2020 Myocardial Perfusion Study [facility] Myocardial Perfusion Study Report [place] Act 112: Negative Procedure: 1. Myocardial perfusion study performed in multiple views/images 2. Lexiscan pharmacologic stress ECG Indications: 1. LBBB 2. Chest pain Ordering physician: Dr. Lund Procedural details: For the stress portion of the study, Lexiscan 0.4 mg was intravenously administered followed by a saline flush. This was followed by 32.4 mCi of technetium 99m Cardiolite, injected at 9:25 a.m. on 10/13/2020. 30 minutes following the injection, imaging of the heart was performed in multiple projections. For the rest portion of the study, 10.5 mCi technetium 99m Cardiolite was injected intravenously at 7:35 a.m. on 10/13/2020. 1 hour following the injection, imaging of the heart was performed in the same projections. Lexiscan stress ECG: Continuous ECG monitoring was performed with supervision and interpretation. Resting ECG demonstrated: Sinus rhythm 77 beats per minute. LBBB. Maximum heart rate: 106 bpm Maximal, age-predicted heart rate: 66 % Resting blood pressure: 151/84 mmHg Maximum blood pressure: 151/84 mmHg. Hypotensive response with blood pressure decreasing to 86/66 mmHg with [address]. Significant ST changes: None Arrhythmia: None Symptoms: Lightheadedness and headache. Findings: Rotating raw imaging demonstrated no significant lung uptake. There is no significant motion artifact. Heart size appeared normal. Myocardial perfusion demonstrated mildly reduced uptake involving the base to apical septum and mid to apical anteroseptum. These defects were fixed in post stress and rest imaging and actually appeared worse on rest imaging. There were no reversible defects to suggest ischemia. Ejection fraction: 62 % Wall motion: Septal motion appeared paradoxical, consistent with bundle-branch block. Other wall motion segments appear normal. No significant transient ischemic dilation. Impression: 1. Negative myocardial perfusion study for ischemia. 2. Fixed septal defect likely due to left bundle-branch block. 3. Normal LV systolic function. EF 62%. 4. No regional wall motion abnormalities, with paradoxical septal wall motion consistent with bundle-branch block. 5. Indeterminate Lexiscan ECG. 6. Hypotensive response to Lexiscan. [facility] [place] Myocardial perfusion code Procedure Code Procedure 1: Myocardial Perfusion Codes: 60827 Cardiovascular Stress Test, multiple Procedure 2: Myocardial Perfusion Codes: 09002 Cardiovascular Stress Test, supervision only Procedure 3: Myocardial Perfusion Codes: 96998 Cardiovascular Stress Test, interpretation and report
--- NOTE | 2020-10-13 17:35 | Discharge Summary ---
Date of Service October 13, 2020 Admission HPI Per Admitting Provider Louise reports for the last three months she has had a daily headache. on she checked her blood pressure and it was elevated to 164/80s. The next day she still felt poorly and emailed her physician who prescribed 5mg of lisinopril. She has also had intermittent chest pain for two weeks. Normally she feels uneasy, tight chest pain in the middle of her chest. On Sunday she was sitting down and she felt like her heart had 'a quick piercing jolt' which scared her. 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 She notes she has had an EKG 'abnormality, left bundle branch block for as far back as way back when.' She first began having chest pain rarely in the preceding few months/years but 'wrote it off as indigestion.' Two weeks ago she noticed more frequent chest pain which did not improve with indigestion medications (omeprazole which she uses PRN). Two weeks ago she noticed the pain just started to 'hang on for a little longer' and started to come up with exercise/exertion. She has not had shortness of breath with the episodes, but does report 'when I have it I need to take deeper breaths.' She notices that exertion has been bringing out the pain in the last two weeks. She denies diaphoresis, but feels warm with cold hands during the episodes. 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 She has had some chest pain without extertion since ~1 mo ago, but feels this is more rare (every few days), and are sudden sharp pains that resolve quickly. Pain in her chest is substernal, in the center of her chest. 0/10 now, but 12/10 at its worst, normally improves with rest after ~10-15 minutes. Does not travel, no shoulder or jaw pain. She has chronic daily headaches which last part of to the whole day for 3-4 months. No vision change. She reports she had COVID in june and still has not reclaimed her sense of smell. Some taste has returned. No hx of bloot clots, DVT, or strokes. Reports she is less active since bilateral knee surgery and weight gain. FHx: Mother T2DM, DVT post-surgically. Father had at least 2 stents in his 60s and had T2DM with no tobacco use. Medical Hx: HLD on fenofrate. Never wanted to be on a statin because her father and best friend had liver reactions. SHX: Bilateral knee surgery. Social: Lives with sister and . Azul Rodriguez is hister sister and would be surrogate decision making. Tobacco: None EtoH: None Recreational: None, no medical marijuana Allergies: HIVES to to ceclor CODE STATUS: Full Code Principal Diagnosis non cardiac chest pain GERD Discharge Exam The patient appeared well nourished and normally developed. Vital signs as documented. Head exam is normocephalic atraumatic no scleral icterus Neck is without JVD, thyromegaly, or carotid bruits. Lungs are clear to auscultation, no focal loss of breath sounds Cardiac exam, Rhythm is regular.. No murmurs, rubs or gallops. Abdominal exam reveals normal bowel sounds, soft non tender, no masses Extremities are nonedematous and both pedal pulses are present Neurologic exam is alert and oriented, no focal loss of strength or sensation Skin is without bruises or rashes Psychologically is without concerns for anxiety or depression Discharge Data Allergies Allergy/AdvReac Type Severity Reaction Status Date / Time cefaclor [From Ceclor] AdvReac Verified 10/11/20 16:29 Consultations 10/11/20 17:07 ED Decision to Admit Stat 10/11/20 20:17 Consult Cardiology Routine Hospital Course (1) Chest pain: Patient has a left bundle branch block which will make determining ischemia on echocardiogram difficult. Cardiology did see the patient and although they are leaning to noncardiac origin of this discomfort Lexiscan on 10/13/[address] Lund Impression: 1. Negative myocardial perfusion study for ischemia. 2. Fixed septal defect likely due to left bundle-branch block. 3. Normal LV systolic function. EF 62%. 4. No regional wall motion abnormalities, with paradoxical septal wall motion consistent with bundle-branch block. 5. Indeterminate Lexiscan ECG. 6. Hypotensive response to Lexiscan. pt will be discharged on carafate and prilosec daily recommend follow up with family doctor (2) Hyperlipidemia: Patient has a fear of statins due to some family members who had a problem after taking them. She is on a fibrate and will continue this with continue education (3) Hypertension: Continues on lisinopril was started on metoprolol but without cad will stop and have pt work on lifestyle modification (4) Insomnia: Typically uses trazodone for sleep as needed (5) [id number] condition: Covid infection was in the distant past doubt this is having any current issues for the patient (6) DVT prophylaxis: Heparin is used for DVT prevention at this time Total Time Total Time Spent Total Time Spent (In Minutes): It required greater than 30 minutes to prepare this patient for discharge Discharge Plan Discharge Items Patient Disposition: Home - Self-Care Reason For Visit: CHEST PAIN Discharge Diagnosis: non cardiac chest pain negative nuclear stress test for cardiac ischemia causing pain Activity: Resume your previous activity Non-emergency contact: Primary Care Provider Call non-emergency contact if: you have any medication questions Follow-up/Referrals: Ayaan Ochoa DO [Primary Care Provider] - 10/18/20 10:00 am Diet: Regular Addtl Attending Provider Instructions: please take the Rx for you pain as possibly being caused by your stomch and reflux of acid, please follow up with your primary care for further testing if needed Pending Studies at Discharge: No Stand-Alone Forms: My [employer], Smoking Cessation Medications and DC Order Prescriptions: New sucralfate [Carafate] 1 gram tablet 1 g PO ACHS Qty: 30 RF: 0 Continued fenofibrate nanocrystallized 145 mg tablet 145 mg PO DAILY Qty: 90 RF: 3 trazodone 50 mg tablet 100 mg PO HS PRN (Reason: insomnia) Qty: 180 RF: 0 zolpidem [Ambien] 10 mg tablet 10 mg PO HS Qty: 30 RF: 0 lisinopril 5 mg tablet 5 mg PO DAILY Qty: 30 RF: 2 cetirizine 10 mg tablet 10 mg PO DAILY PRN (Reason: Allergy Symptoms) RF: 0 cholecalciferol (vitamin D3) [Vitamin D3] 125 mcg (5,000 unit) Tablet 125 mcg PO DAILY RF: 0 Changed omeprazole 40 mg capsule,delayed release(DR/EC) 40 mg PO DAILY Qty: 90 RF: 1 Discharge Orders: Discharge Order (Routine); Ordered 10/13/20 Ordered By: Mike Bella/Other Patient Handouts: 5 Steps for Eating Healthier, A1C Admission Data Admit Date/Time: 10/11/20 18:22 Attending Provider: Mike Boyd Admit Provider: Berry Boyce Primary Care Provider: Ayaan Ochoa Other Providers: Marline Wiggins ; Chilo Barbosa Other Interventions: Discharge Summary Assessment (RN) Last Done: 10/13/20 14:56 Coding Level of Care Code D/C Day Management >30 mins Diagnoses Chest pain R07.2 Chest pain type: precordial pain Hyperlipidemia E78.5 Hyperlipidemia type: unspecified Hypertension I10 Hypertension type: essential hypertension Insomnia G47.00 [id number] condition B94.8 DVT prophylaxis Z29.9
== END 2020-10-13 15:06 | disposition home or self-care (01) ==
LOC: 2E 12:32 → ED 12:32 → SUATTDRO 18:22 → 2E 20:01